=== PATIENT | male | born 1995 | race Caucasian/White ===

== ENCOUNTER 2016-10-03 15:11 | Observation (INO) ==
--- NOTE | 2016-10-03 18:17 | Emergency Department Note ---
Disposition Clinical Impression: Syncope and collapse, Bradycardia Head ache Qualifiers: Headache type: unspecified Headache chronicity pattern: acute headache Intractability: not intractable Qualified Code(s): R51 - Headache Disposition: Admitted As Inpatient Condition: Good Time of Disposition: 20:30 General Adult HPI - General Chief complaint: ED Syncope Stated complaint: syncope Time Seen by Provider: 10/03/16 18:17 Source: patient Mode of arrival: ambulatory Limitations: no limitations Nursing Notes Reviewed: Yes Vital Signs Reviewed: Yes - History of Present Illness HPI Narrative: Patient had a syncopal event yesterday around 9 AM. States that he got short of breath prior to the episode. He then fell to the ground however he did not strike his head. He states when his buttocks at the ground he was able to put his hand out. He did have associated photophobia and headache with the syncope. He also had associated nausea. States that his gait was off for approximately 30 minutes after this. He did eat breakfast prior to this. Pain Scale: 3 - Related Data Allergies Allergy/AdvReac Type Severity Reaction Status Date / Time No Known Allergies Allergy Verified 06/05/16 23:42 All systems ED: reviewed and negative except as stated. Constitutional: Denies: fever, chills ENT ED: Denies: congestion Cardiovascular: Reports: syncope. Denies: chest pain, palpitations, dyspnea on exertion Respiratory: Reports: dyspnea (For 30 minutes prior to syncopal event. None Since.). Denies: cough Gastrointestinal: Reports: nausea (Yesterday when he had the headache and syncopal event. Not today.). Denies: abdominal pain Musculoskeletal: Denies: back pain, neck pain Neurological: Reports: headache (Abnormal yesterday. Associated with eye pain and blurry vision. Patient states a "normal headache today."), abnormal gait ( Yesterday around the time of his syncopal event and for approximately 30 minutes after. None Today). Denies: weakness, numbness, paresthesias Past Medical History - Past Medical History Attestation: Yes The following information was validated with the patient. Source: patient Medical history: Reports: other (Headaches, 3 previous concussions during high school. Absence seizures during high school nonsense.) Psychiatric history: Reports: no psych history - Social History Smoking Status: Never smoker Smokeless Tobacco Status: No Alcohol use: Reports: rarely Drug use: Reports: none Physical Exam - General Limitations: no limitations General appearance: alert, in no apparent distress - Head Head exam: atraumatic, normocephalic, normal inspection - Eye Eye exam: Present: normal appearance, PERRL, EOMI. Absent: scleral icterus, conjunctival injection - ENT ENT exam: normal exam, normal oropharynx, mucous membranes moist - Neck Neck exam: Present: normal inspection, full ROM, trachea midline. Absent: tenderness - Chest Chest inspection: Present: normal inspection, symmetric chest wall rise - Respiratory Respiratory exam: Present: normal lung sounds bilaterally. Absent: respiratory distress, wheezes - Cardiovascular Cardiovascular exam: Present: normal rhythm, bradycardia, normal heart sounds - Abdominal Exam Abdominal exam: Present: soft, Non-Tender. Absent: tenderness, distention, guarding, rebound, rigidity, organomegaly, Pickering's sign, Rovsing's sign, tenderness at McBurney's Point - Extremities Exam Extremities exam: Present: normal inspection, full ROM, normal capillary refill. Absent: tenderness, pedal edema - Back Exam Back exam: Present: normal inspection, full ROM. Absent: tenderness, CVA tenderness (R), CVA tenderness (L) - Neurological Exam Neurological exam: Present: alert, oriented X3, CN II-XII intact, normal gait. Absent: motor sensory deficit - Psychiatric Psychiatric exam: Present: normal affect, normal mood - Skin Skin exam: Present: warm, dry, intact, normal color. Absent: rash, cyanosis, diaphoresis, erythema Course Course Narrative: Well-appearing male patient sitting in bed in no distress. Child is running about the room. The patient is smiling. He states that yesterday while at work around 9 AM he started developing shortness of breath. Approximately 30 minutes after shortness of breath he got an intense headache, blurry vision, and pain behind his eyes. States he also got nauseated. He then had a syncopal event. He states he went down onto his buttocks. States when his hips hit the ground he was able to place his hand behind him. He states he did not strike his head. He states for like 30 minutes after he was able to get off the ground he had an abnormal gait. Patient has a significant history of several concussions while he was in high school from wrestling. He also developed Seizures That He Was Placed on Medication for during His Senior Year. He Has Not Had Any of the Seizures since He Graduated from High School. He States He No Longer Takes Medication for His Headaches. He Frequently Gets Headaches Greater Than 3 Times A Week. He States They Are Not Very Intense. He Grades Them about a 2 Out Of 10. He states he does have a headache at this time however it is like his normal headaches. He states that he has a dull ache to the top of his head. He states only major differences of this headache yesterday was that he had the photophobia and pain behind his eyes. He is mentating appropriately at this time. He is bradycardic while here. I am concerned due to his bradycardia and recent syncope. We have ordered a basic lab workup. His head CT was normal. His chest x-ray was normal. His lab workup was normal. Also added a d-dimer at this time. He denies any shortness of breath at this time. He denies any episodes of feeling like he had Palpitations. He denies any nausea vomiting or diarrhea at this time. He does report nausea associated with his syncope yesterday. Patient is agreeable to admission at this time. - Consultations Consultation #1: Dr Rasmussen accepted Pt in stable condition. Time: 20:25 Vital Signs Temperature 97.4 F L 10/03/16 15:47 Pulse Rate 56 10/03/16 15:47 Respiratory Rate 18 10/03/16 15:47 Blood Pressure 123/75 10/03/16 15:47 O2 Sat by Pulse Oximetry 96 10/03/16 15:47 Temperature 98.0 F 10/04/16 16:12 Pulse Rate 50 10/04/16 16:13 Respiratory Rate 16 10/04/16 16:12 Blood Pressure 122/79 10/04/16 16:13 O2 Sat by Pulse Oximetry 98 10/04/16 16:12 Oxygen Delivery Oxygen Delivery Room Air Medical Decision Making - Medical Records Medical records reviewed: Yes I reviewed the patient's medical records. - Lab Data Lab results reviewed: Yes I reviewed the patient's lab results. Result diagrams: 10/04/16 03:42 10/04/16 03:42 Lab Results 10/03/16 10/03/16 10/03/16 Range/Units 19:24 19:24 19:24 WBC 6.7 (4.3-11.1) K/mcL RBC 5.49 (4.19-5.50) M/mcL Hgb 15.6 (12.9-16.9) g/dL Hct 46.9 (37.5-50.1) % MCV 85.4 (83.0-100.0) fL MCH 28.4 (28.0-33.3) pg MCHC 33.3 (31.6-35.5) g/dL RDW 12.6 (11.5-14.5) % Plt Count 184 (140-400) K/mcL MPV 9.6 (9.4-12.4) fL Immature Gran % 0.4 (0-4) % Seg Neutrophils % 61.6 % Lymphocytes % 25.7 % Monocytes % 7.8 % Eosinophils % 3.9 % Basophils % 0.6 % Neutrophils # 4.1 (1.6-8.9) K/mcL Lymphocytes # 1.7 (0.6-4.6) K/mcL Monocytes # 0.5 (0.0-1.3) K/mcL Eosinophils # 0.3 (0.0-0.6) K/mcL Basophils # 0.0 (0.0-0.2) K/mcL PT 11.7 (9.4-12.1) Seconds INR 1.1 D-Dimer 491 (0-500) ng/mLFEU Sodium 140 (136-145) mEq/L Potassium 4.0 (3.5-4.5) mEq/L Chloride 105 (98-109) mEq/L Carbon Dioxide 29 (19-29) mEq/L BUN 10 (8-26) mg/dL Creatinine 0.85 (0.72-1.25) mg/dL Est GFR ( Amer) > 60 (> 60) Est GFR (Non-Af Amer) > 60 (> 60) BUN/Creatinine Ratio 12 (6-26) Glucose 80 (70-99) mg/dL Calculated Osmolality 288 (280-300) Calcium 9.4 (8.6-10.8) mg/dL - Radiology Data Radiology results reviewed: Yes I reviewed the patient's radiology results. Chest X-Ray 10/03/16 16:37 IMPRESSION: No acute process. D/ / Mil Lopez MD / Mil Lopez MD Interpreting Provider: Mil Lopez MD Head CT 10/03/16 18:40 IMPRESSION: No acute intracranial abnormality. D/ / Ion Schuster MD / Ion Schuster MD Interpreting Provider: Ion Schuster MD - EKG Data EKG #1 EKG attestation: Yes I reviewed and interpreted this EKG. EKG results narrative: Sinus bradycardia with sinus arrhythmia at a rate of 49. GA interval is 137. QRS duration is 92. QT is 412. QTC is 384. No signs of acute ischemia. No previous EKG to compare to. Attestation Statement - Attestation Attestation: I personally interviewed and examined this patient and my medical decision- making was reviewed with the Resident Physician, Dr. Miranda. I agree with the documented findings, disposition and treatment plan as described except to the extent set forth below. Pt is a 21 yo wm, with long hx of headaches who presents to the ER by the urging of his for a syncopal event that occurred yesterday. Pt reports hx of generalized throbbing headaches which he gets 2-3x/wk for the past 5-6 years. PT reports that he began getting headaches after numerous concussions in high school during wrestling. Pt also had seizures following these concussions, and had seen a neurologist while in school. Pt had MRI, CT imaging of brain and EEG monitoring. He was never started on seizure meds, and states he has not had a seizure since high school. Pt continues to have headaches. Pt reports that he was having one of his "typical headaches" yesterday morning at around 0900 and while at work. Pt reports that he was walking and began feeling SOB, and having palpitations, then became very lightheaded, and passed out. Pt reports falling back ont his buttocks, and denies any injury related to the event. Pt isn't sure if he "totally passed out", because he remembers landing on his buttocks, and not striking his head or back. Pt reports feeling very lightheaded for about 30 minutes following the episode. No tongue biting, no incontinence. Pt denies any sudden increase in MIX pain prior to event. MIX's have been improved, 2 /10 in severity since the event. The only change on the morning of this syncope vs near syncope was that he was having photophobia and pain behind his eyes that morning. I agree with pt's PE as documented. Pt with bradycardia in ED on EKG, no ischemic changes. Labs unremark, CT brain wnl. Neuro exam over time unchanged. Added D-dimer with reports of sudden SOB/palp, but neg. Concerned with possible symptomatic bradycardia as the possible etiology, will admit for further eval. VSS and D/W hosp.
[2016-10-03] MEDS ORDERED: 0.9 % Sodium Chloride 1,000 ML IVC ONE (19:12)
[2016-10-03 19:46] LABS: Basophils % 0.6 %; Eosinophils # 0.3 K/mcL (0.0-0.6); Eosinophils % 3.9 %; Hematocrit 46.9 % (37.5-50.1); Hemoglobin 15.6 g/dL (12.9-16.9); Immature Granulocytes % 0.4 % (0-4); Lymphocytes # 1.7 K/mcL (0.6-4.6); Lymphocytes % 25.7 %; Mean Corpuscular HGB Conc 33.3 g/dL (31.6-35.5); Mean Corpuscular Hemoglobin 28.4 pg (28.0-33.3); Mean Corpuscular Volume 85.4 fL (83.0-100.0); Mean Platelet Volume 9.6 fL (9.4-12.4); Monocytes # 0.5 K/mcL (0.0-1.3); Monocytes % 7.8 %; Neutrophils # 4.1 K/mcL (1.6-8.9); Platelet Count 184 K/mcL (140-400); Red Blood Count 5.49 M/mcL (4.19-5.50); Red Cell Distribution Width 12.6 % (11.5-14.5); Segmented Neutrophils % 61.6 %
[2016-10-03 20:01] LABS: BUN/Creatinine Ratio 12 (6-26); Blood Urea Nitrogen 10 mg/dL (8-26); Calcium 9.4 mg/dL (8.6-10.8); Carbon Dioxide 29 mEq/L (19-29); Chloride 105 mEq/L (98-109); Glucose 80 mg/dL (70-99); INR 1.1; Osmolality,Calculated 288 (280-300); Prothrombin Time 11.7 Seconds (9.4-12.1); Sodium 140 mEq/L (136-145); eGFR For African Americans > 60 (> 60); eGFR For Non-African Americans > 60 (> 60)
[2016-10-03] MEDS ORDERED: Ondansetron 4 MG/2 ML VIAL IVP PRN (21:15)
[2016-10-03] MEDS ORDERED: Naloxone 0.4 MG/ML INJ IVP PRN (21:15)
[2016-10-03] MEDS ORDERED: Acetaminophen 325 MG TABLET PO PRN (21:15)
--- NOTE | 2016-10-03 21:26 | Internal Med History&Physical ---
<Cee Ozuna M - Last Filed: 10/03/16 22:10> Date of Encounter: 10/03/16 Time of Encounter: 21:21 Assessment and Plan (1) Syncope and collapse Current visit: Yes Status: Acute Patient reports severe headache and eye pain starting upon waking yesterday, this progressed to included blurred vision, lightheadedness, nausea, and finally syncope with fall. Following the syncope, patient had trouble walking, nausea, headache for 3 hours. Patient has a history of head injuries, absence seizures (now resolved), and frequent headaches. Arrhythmia vs. Migraine vs seizure. Will evaluate for cardiac and neurological causes. EKG showed sinus bradycardia with HR 49. Head cT showed no acute intracranial abnormality. Continuous monitoring and evaluation advisor echocardiogram MRI head and brain consult to neurology (2) Head ache Current visit: Yes Status: Acute Patient reports severe headache yesterday surrounding the syncopal event. He had pain behind his eyes, nausea, and blurry vision. He reports he has mild headaches approximately 2 times per week. He also reports that 6 months ago he had an episode of severe headache and frequent nosebleeds lasting about a week. History of head injuries. He currently has a mild headache. Blood pressure is normal. Tylenol PRN. MRI head and brain consult to neurology. Qualifiers: Headache type: unspecified Headache chronicity pattern: acute headache Intractability: not intractable Qualified Code(s): R51 - Headache (3) Bradycardia Current visit: Yes Status: Acute Patient with HR of 49 on ekg. HR recorded in 50s-60s on recorded vital signs. Symptomatic bradycardia may be possible cause of syncope and headache. 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 Continuous monitoring and evaluation advisor. (4) DVT prophylaxis Current visit: Yes Status: Acute ambulate ad riley Internal Medicine - H&P: HPI Chief complaint: syncope Admitted From: Emergency Dept Plans for Post Hospital Care: Home History of present illness: Mr. Jones is a 21 year old male with history of concussions and absence seizures presented to the emergency department today with complaint of episode of syncope and headache yesterday. Patient reports that when he woke up in the morning proximally 5 AM he had a headache right behind his eyes. Headache continued to worsen admitted morning he started having shortness of breath and blurry vision which lasted about a half hour, he also had some lightheadedness which lasted about an hour prior to fainting and falling to the ground. He reports he fell on his backside and was able to stop himself, he was helped up by a coworker, but then had trouble ambulating. He had nausea prior to and after the event. He continued to have a severe headache and difficulty walking for 3 hours after the event. He denies any confusion. Immediately after the event he was taken to the on-site urgent care at work, where he was told his symptoms are related to allergies. Patient was not satisfied with that diagnosis which is why he presented to the emergency department today. He reports that in high school he suffered 3 concussions, one of which was a major concussion requiring 6 months of follow-up in the concussion clinic. He also reports he had absence seizures for several months after his concussion. He no longer takes seizure medication, and denies any seizures since that time. He reports that approximately 6 months ago he had a severe headache and nosebleeds lasting for approximately 1 week, which then resolved on its own. He reports he typically has approximately 2 headaches per week, he denies any interference in his day-to-day life and does not even take any medication for them. Evaluation in the emergency department included head CT which showed no acute intracranial abnormality. EKG showed sinus bradycardia with heart rate of 49, no signs of acute ischemia. CXR showed no acute process. Labs were normal. On exam, patient alert and oriented, in no acute distress. Heart had regular rate and rhythm lungs are clear bilaterally to auscultation. No neurological deficits. Past Med Surg Social Fam HX - Past Medical History Medical history: other (Headaches, 3 previous concussions during high school. Absence seizures during high school.) Psychiatric history: no psych history - Past Surgical History Surgical History: no surgical history - Social History Smoking Status: Never smoker Smokeless Tobacco Status: No Alcohol use: rarely Drug use: none - Family History Mother Living Status: Still Living Father Living Status: Still Living Grandfather Living Status: Still Living Hx Family Cardiac Disorders: Yes Internal Medicine - H&P: Meds No Known Home Drugs 10/03/16 [History] 3 Allergy/AdvReac Type Severity Reaction Status Date / Time No Known Allergies Allergy Verified 06/05/16 23:42 All Systems PM: A 10-system review of systems was performed and is negative for pertinent findings except as documented above in the HPI. - Constitutional Constitutional: no chills, no fever(s), no night sweats - EENT Eyes: blurry vision, no change in vision, no discharge, no pain, no photophobia Ears: no ear discharge, no ear pain, no tinnitus Nose, mouth and throat: no dysphagia, no nasal discharge, no neck pain, no sore throat - Cardiovascular Cardiovascular ROS IM: dyspnea, lightheadedness, syncope, no chest pain, no diaphoresis, no palpitations - Respiratory Respiratory: no cough, no dyspnea, no wheezing, no excessive phlegm production - Gastrointestinal Gastrointestinal: no abdominal pain, no diarrhea, no hematemesis, no hematochezia, no melena, no nausea, no vomiting - Musculoskeletal Musculoskeletal ROS IM: no numbness, no tingling - Integumentary Integumentary IM: no rash, no unusual bruising - Neurological Neurological ROS: no confusion, no convulsions, no focal weakness, no numbness, no tingling, no tremor(s) - Hematologic/Lymphatic Hematologic/Lymphatic: no easy bruising - Constitutional Vitals: Temp Pulse Resp BP Pulse Ox 98.3 F 55 16 132/88 98 10/03/16 20:51 10/03/16 20:51 10/03/16 20:51 10/03/16 20:51 10/03/16 20:51 General appearance: Present: A&O X 3, pleasant, no acute distress - Head Head exam: Present: atraumatic, normocephalic - Eye Eye exam: Present: PERRL, conjuntiva pink, sclera anicteric Pupils: Present: PERRL - Neck Neck exam general surgery: Present: supple, trachea midline. Absent: lymphadenopathy - Respiratory Respiratory exam: Present: CTAB. Absent: accessory muscle use, rales, rhonchi, wheezes - Cardiovascular Cardiovascular exam: Present: RRR, +S1, +S2. Absent: diastolic murmur, gallop, rubs, systolic murmur - GI/Abdominal GI/Abdominal exam: Present: normal bowel sounds, soft, no peritoneal signs. Absent: distended, tenderness - Extremities Exam Extremities exam: Present: warm, radial pulses palpable and symmetrical. Absent : calf tenderness, cyanotic, pedal edema - Neurological Exam Neurological exam: Present: CN II-XII intact, normal gait, oriented X3, no focal deficits, strengths equal and symetr throughout. Absent: pronater drift, facial droop, speech deficit - Expanded Neurological Exam Cranial Nerves: EOM's intact PM: Normal, gag reflex PM: Normal, nystagmus PM: Normal, tongue deviation PM: Normal Cerebellar function: finger to nose: Normal, heel to jordan: Normal, Romberg: Normal Neuro motor strength exam: LUE: 5, RUE: 5, LLE: 5, RLE: 5 - Skin Skin exam: Present: dry, intact Internal Med - H&P Results - Labs CBC & Chem 7: 10/03/16 19:24 10/03/16 19:24 Labs: All Lab Results (24 Hours) 10/03/16 10/03/16 10/03/16 Range/Units 19:24 19:24 19:24 WBC 6.7 (4.3-11.1) K/mcL RBC 5.49 (4.19-5.50) M/mcL Hgb 15.6 (12.9-16.9) g/dL Hct 46.9 (37.5-50.1) % MCV 85.4 (83.0-100.0) fL MCH 28.4 (28.0-33.3) pg MCHC 33.3 (31.6-35.5) g/dL RDW 12.6 (11.5-14.5) % Plt Count 184 (140-400) K/mcL MPV 9.6 (9.4-12.4) fL Immature Gran % 0.4 (0-4) % Seg Neutrophils % 61.6 % Lymphocytes % 25.7 % Monocytes % 7.8 % Eosinophils % 3.9 % Basophils % 0.6 % Neutrophils # 4.1 (1.6-8.9) K/mcL Lymphocytes # 1.7 (0.6-4.6) K/mcL Monocytes # 0.5 (0.0-1.3) K/mcL Eosinophils # 0.3 (0.0-0.6) K/mcL Basophils # 0.0 (0.0-0.2) K/mcL PT 11.7 (9.4-12.1) Seconds INR 1.1 D-Dimer 491 (0-500) ng/mLFEU Sodium 140 (136-145) mEq/L Potassium 4.0 (3.5-4.5) mEq/L Chloride 105 (98-109) mEq/L Carbon Dioxide 29 (19-29) mEq/L BUN 10 (8-26) mg/dL Creatinine 0.85 (0.72-1.25) mg/dL Est GFR ( Amer) > 60 (> 60) Est GFR (Non-Af Amer) > 60 (> 60) BUN/Creatinine Ratio 12 (6-26) Glucose 80 (70-99) mg/dL Calculated Osmolality 288 (280-300) Calcium 9.4 (8.6-10.8) mg/dL - Diagnostic Studies Chest x-ray Additional comments: Chest X-Ray 10/03/16 16:37 IMPRESSION: No acute process. D/ / Mil Lopez MD / Mil Lopez MD Interpreting Provider: Mil Lopez MD CT scan - head Additional comments: Head CT 10/03/16 18:40 IMPRESSION: No acute intracranial abnormality. D/ / Ion Schuster MD / Ion Schuster MD Interpreting Provider: Ion Schuster MD <Hammad Padilla - Last Filed: 10/04/16 04:34> Date of Encounter: 10/04/16 Internal Medicine - H&P: HPI History of present illness: Mr. Jones is a 21 year old male All Systems PM: A 10-system review of systems was performed and is negative for pertinent findings except as documented above in the HPI. - Constitutional Vitals: Temp Pulse Resp BP Pulse Ox 98.0 F 59 16 134/72 98 10/03/16 23:21 10/03/16 23:21 10/03/16 23:21 10/03/16 23:21 10/03/16 23:21 Internal Med - H&P Results - Labs CBC & Chem 7: 10/04/16 03:42 10/04/16 03:42 Labs: Short CBC 10/04/16 Range/Units 03:42 WBC 5.9 (4.3-11.1) K/mcL Hgb 15.2 (12.9-16.9) g/dL Hct 45.0 (37.5-50.1) % Plt Count 179 (140-400) K/mcL Neutrophils # 3.1 (1.6-8.9) K/mcL BMP 10/04/16 03:42 Sodium 141 Potassium 3.7 Chloride 110 H Carbon Dioxide 26 BUN 9 Creatinine 0.84 Glucose 99 Calcium 9.2 - Attending Attestation I independently obtained history and examined this patient and my medical decision-making was reviewed with the nurse practitioner, Cee Ozuna. I agree with the documented findings, disposition and treatment plan as described. My findings are summarized below: Patient was brought to the hospital for evaluation of headache and syncope. On exam he is awake alert oriented 3. No acute distress. Neurologic exam is nonfocal Heart is regular with normal S1-S2. Plan: Workup for cardiogenic syncope with echocardiogram and heart monitor. Neurogenic syncope workup with MRI and neuro consult. We will add on urine drug screen to rule out recreational drug use as a cause of his symptoms.
[2016-10-03 23:28] LABS: Amphetamine Screen,Urine Negative ng/mL (Cutoff=1000); Barbiturate Screen,Urine Negative ng/mL (Cutoff=200); Benzodiazepines Screen,Urine Negative ng/mL (Cutoff=200); Cannabinoid Screen,Urine Negative ng/mL (Cutoff = 50); Cocaine Screen,Urine Negative ng/mL (Cutoff= 300); Opiate Screen,Urine Negative ng/mL (Cutoff=300); Phencyclidine Screen,Urine Negative ng/mL (Cutoff=25)
[2016-10-04 03:57] LABS: Basophils % 0.7 %; Eosinophils # 0.3 K/mcL (0.0-0.6); Eosinophils % 4.9 %; Hemoglobin 15.2 g/dL (12.9-16.9); Immature Granulocytes % 0.5 % (0-4); Lymphocytes # 1.9 K/mcL (0.6-4.6); Lymphocytes % 32.8 %; Mean Corpuscular HGB Conc 33.8 g/dL (31.6-35.5); Mean Corpuscular Hemoglobin 28.3 pg (28.0-33.3); Mean Corpuscular Volume 83.8 fL (83.0-100.0); Mean Platelet Volume 9.9 fL (9.4-12.4); Monocytes # 0.5 K/mcL (0.0-1.3); Neutrophils # 3.1 K/mcL (1.6-8.9); Platelet Count 179 K/mcL (140-400); Red Blood Count 5.37 M/mcL (4.19-5.50); Red Cell Distribution Width 12.6 % (11.5-14.5); Segmented Neutrophils % 52.1 %
[2016-10-04 04:17] LABS: BUN/Creatinine Ratio 11 (6-26); Blood Urea Nitrogen 9 mg/dL (8-26); Calcium 9.2 mg/dL (8.6-10.8); Carbon Dioxide 26 mEq/L (19-29); Chloride 110 mEq/L (98-109); Glucose 99 mg/dL (70-99); Osmolality,Calculated 291 (280-300); Potassium 3.7 mEq/L (3.5-4.5); Sodium 141 mEq/L (136-145); eGFR For African Americans > 60 (> 60); eGFR For Non-African Americans > 60 (> 60)
--- NOTE | 2016-10-04 12:33 | Discharge Summary ---
Date of Encounter: 10/04/16 Time of Encounter: 11:45 - Discharge Diagnosis (1) Syncope and collapse Priority: Primary Status: Acute Comments: Unclear causation. Chest x-ray negative. Head CT negative. Tox screen negative. Echocardiogram unremarkable with ejection fraction of 60-65%. Brain MRI negative for acute processes. Patient is ambulatory without symptoms during this admission. Orthostatic vital signs unremarkable. Seen and evaluated by neurology who recommended starting him on Topamax at bedtime, rest at home 3 days and follow-up in 3-4 weeks outpatient. (2) Bradycardia Priority: Secondary Status: Chronic Comments: Mild, asymptomatic. Follow up outpatient. (3) Head ache Priority: Secondary Status: Chronic Comments: Patient stated he gets headaches at least a couple times a week but does not take medication for it. He currently complains of a mild headache but states it is consistent with his regular headaches. He denies any vision changes or gait difficulties. Qualifiers: Headache type: unspecified Headache chronicity pattern: acute headache Intractability: not intractable Qualified Code(s): R51 - Headache (4) History of seizures as a child Priority: Secondary Status: Chronic Comments: Patient stated he had several concussions secondary to wrestling and football in high school. He states his last seizure was either when he was a sophomore vish in high school. No anti-seizure medications at home. (5) DVT prophylaxis Priority: Primary Status: Acute Comments: Observation patient. Up ad riley. - Discharge Medications Prescriptions: Topiramate [Topamax] 50 mg PO HS #30 tablet Home Medications: Topiramate [Topamax] 50 mg PO HS #30 tablet 10/04/16 [Rx] Allergies/Adverse Reactions: 3 Allergy/AdvReac Type Severity Reaction Status Date / Time No Known Allergies Allergy Verified 06/05/16 23:42 Procedures/tests Complete & Pending: Procedures Performed prior 72 hours Category Date Time Status MR head/brain wo con [MR] Routine MRI 10/03/16 22:09 Completed EV echocardiogram Routine Y 10/04/16 21:17 Completed Date of admission: 10/03/16 20:33 Primary care physician: PCP NONE Consults: 10/03/16 22:08 Consult to Neurology [CONS] Routine Consulting Provider: [facility] Reason for Consult: Severe headache with syncopal episode. History of multiple concussions and absence seizures (now resolved) Call Completed: No Discharging clinician: Nadine Schwab Anticipated date of discharge: 10/04/16 - Patient Status Disposition: Home, Self-Care Condition: Good Functional capacity at discharge: independent ambulation Overall status at discharge: patient is back to baseline - Discharge Instructions Follow Up With: Sandi Araiza MD [Partnered Physician] - 10/09/16 1:30 pm Garrison Guerin MD [Partnered Physician] - Additional Instructions: Follow-up with primary care provider as scheduled, take 3 days off of work. Follow-up with neurology in 3-4 weeks - Diet and Activity Activity: increase activity as tolerated, return to work once cleared by your PCP/specialist Diet: regular diet Hospital course: Mr. Jones is a 21 year old male with past medical history of multiple concussions due to high school sports and absent seizures back in high school. Patient presented to the emergency department chief complaint of an episode of syncope and a headache on the day prior to presentation. Patient states that when he woke up in the morning, he had a headache behind his eyes which continued to worsen throughout the morning then he started to experience shortness of breath and blurred vision which lasted approximately half an hour. Patient also endorsed lightheadedness which lasted about an hour and occurred prior to him fainting and falling to the ground. Patient reports he fell on his backside was unable to stop himself. He was helped up by a coworker but had difficulty ambulating. Patient also endorsed nausea prior to and after the event. Patient continued to have a severe headache and difficulty walking for 3 hours. He denied any confusion. Immediately after the event, he was taken to his urgent care at his job where he is told his symptoms were related to allergies. He was not satisfied with that diagnosis which prompted his presentation to the emergency department the following day. Patient stating it was high school, he had 3 concussions and had outpatient follow-up with concussion clinic 6 months. After his concussions, patient began to have absence seizures but has not had any seizures since high school and is not on any antiepileptic medications. Patient endorsing acute on chronic headaches happening approximately 2 headaches per week but states these headaches do not interfere with his day-to-day living and he does not take medications for them. Workup in the emergency department revealing sinus bradycardia with no signs of acute ischemia. Chest x-ray negative for acute processes. Head CT negative. Patient was admitted to the hospitalist service for further evaluation and management. Patient remained alert and oriented 3 with no focal neurological weakness is present on examination. Brain MRI negative for acute processes. Echocardiogram unremarkable with ejection fraction of 60-65%. Patient was ambulatory without symptoms during this admission. Orthostatic vital signs unremarkable. Neurology was brought on board who recommended initiating 50 mg of Topamax at bedtime, 3 days rest at home, and follow-up in 3- 4 weeks. He was discharged home in stable condition with close outpatient follow-up recommended. ITS Impressions Chest X-Ray 10/03/16 16:37 IMPRESSION: No acute process. D/ / Mil Lopez MD / Mil Lopez MD Interpreting Provider: Mil Lopez MD Head CT 10/03/16 18:40 IMPRESSION: No acute intracranial abnormality. D/ / Ion Schuster MD / Ion Schuster MD Interpreting Provider: Ion Schuster MD Brain MRI 10/03/16 22:09 IMPRESSION: Unremarkable noncontrast MRI of the brain. The bilateral hippocampal and parahippocampal structures are within normal limits. D/ / Jayson Pedraza MD / Jayson Pedraza MD Interpreting Provider: Jayson Pedraza MD Echocardiogram Date of Study: 10/04/2016 Impressions: Normal LV systolic function, LVEF 60-65%. Normal left ventricular diastolic function. Normal right ventricular size and function. No significant valvular dysfunction. No evidence of pulmonary hypertension. - Time Spent with Patient Total time spent providing and/or coordinating discharge services: - Constitutional Vitals: Temp Pulse Resp BP Pulse Ox 98.1 F 59 17 106/65 98 10/04/16 11:28 10/04/16 11:28 10/04/16 11:28 10/04/16 11:28 10/04/16 11:28 General appearance: Present: A&O X 3, pleasant, no acute distress, answers questions appropriately - Head Head exam: Present: atraumatic, normocephalic - Eye Eye exam: Present: PERRL, conjuntiva pink, sclera anicteric Pupils: Present: PERRL - Neck Neck exam general surgery: Present: supple, trachea midline. Absent: lymphadenopathy - Respiratory Respiratory exam: Present: CTAB. Absent: accessory muscle use, rales, respiratory distress, rhonchi, wheezes - Cardiovascular Cardiovascular exam: Present: RRR, +S1, +S2. Absent: diastolic murmur, gallop, rubs, systolic murmur - GI/Abdominal GI/Abdominal exam: Present: normal bowel sounds, soft, no peritoneal signs. Absent: distended, tenderness - Extremities Exam Extremities exam: Present: warm, radial pulses palpable and symmetrical. Absent : calf tenderness, cyanotic, pedal edema - Neurological Exam Neurological exam: Present: alert, CN II-XII intact, normal gait, oriented X3, no focal deficits, strengths equal and symetr throughout. Absent: pronater drift, facial droop, speech deficit - Skin Skin exam: Present: dry, intact, normal color, warm
--- NOTE | 2016-10-04 14:53 | Electrocardiograph Report ---
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
[2016-10-04 16:14] VITALS: BP 122/79
--- NOTE | 2016-10-04 18:31 | Neurology - Consult Note ---
Date of Encounter: 10/04/16 Time of Encounter: 18:25 Assessment and Plan (1) Syncope and collapse Current Visit: Yes Status: Acute Apparently patient developed a syncopal episode. Unlikely seizure. Could be complicated by dehydration, headache and orthostatic in nature. (2) Head ache Current Visit: Yes Status: Chronic Chronic intermittent headaches of unknown nature. No significant nausea or other autonomic symptoms therefore not sure we are dealing with migraines. could be Stress headaches or tension headache but due to frequent headaches will suggest starting him on Topirmate 50mg qhs. Off work rest at home 3 days. Patient is able to drive Follow up neurology 3 weeks Qualifiers: Headache type: unspecified Headache chronicity pattern: acute headache Intractability: not intractable Qualified Code(s): R51 - Headache History of Present Illness Chief complaint: head and passing out HPI: Mr. Jones is a 21 year old male with PMH signfiicant for chronic headaches, and vertigo who developed an episode of passing out spell associated with not feeling well and headache. He woke up with a frontal headache and was not feeling well that day, he then felt light headaches and passed out. As soon as he hit the floor he regained his consciousness. He has no such similar episodes in the past. He does have chronic headaches occurring few times a week. He has had episodes of vertigo, blurry vision followed by exhaustion in his teenage years and has had extensive work up at [facility]. was told that he was 'awake seizures' but they are not epileptic seizures. After the spell he would sleep 4-5 hours. mother relates. Currently the patient is resting comfortably in bed. He says that he has headaches 2 times a week. They are not associated with nausea and vomiting. MRI of brain showed no abnormality. Past Med Surg Social Fam HX - Past Medical History Medical history: other (Headaches, 3 previous concussions during high school. Absence seizures during high school.) Psychiatric history: no psych history - Past Surgical History Surgical History: no surgical history - Social History Smoking Status: Never smoker Smokeless Tobacco Status: No Alcohol use: rarely Drug use: none - Family History Mother Living Status: Still Living Father Living Status: Still Living Grandfather Living Status: Still Living Hx Family Cardiac Disorders: Yes Medications and Allergies Topiramate [Topamax] 50 mg PO HS #30 tablet 10/04/16 [Rx] 3 Allergy/AdvReac Type Severity Reaction Status Date / Time No Known Allergies Allergy Verified 06/05/16 23:42 All Systems: A 10-system review of systems was performed and is negative for pertinent findings except as documented above in the HPI. 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, hip flexors, tibialis Anterior, quadriceps, toe extension (EHL), plantarflexion Motor examination - left side: 06/16: deltoids, biceps, triceps, wrist flexion, wrist extension, hip flexors, programmable 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, quadriceps, tibialis Anterior, toe extension (EHL), plantarflexion Mental Status Examination: awake, alert, oriented to person, oriented to place, oriented to time, follows commands appropriately, answers questions appropriately, no agnosia, no aphasia, no aproxia Cranial nerve examination: PERRL, EOMI, visual hercules intact, corneal reflexes brisk symmetrically, sensory to face intact, mastication intact, no facial asymmetry is present, no dysarthria, hearing is intact symmetrically, soft palate elevates bilaterally upon phonation, gag reflex intact, flexes SCM and trapezius muscles symmetrically with full power, tongue protrudes midline, no atrophy or facial fasiculations present Cerebellar examination: no dysmetria, performs finger to nose and heel to jordan symmetrically without ataxia, no gait ataxia, no truncal ataxia, no difficulty with rapid alternating movements Results - Laboratory Findings CBC and BMP: 10/04/16 03:42 10/04/16 03:42 Abnormal lab findings: Abnormal lab results Chloride 110 mEq/L (98-109) H 10/04/16 03:42 Consult Discharge Plan - Plan Additional Instructions: Follow-up with primary care provider as scheduled, take 3 days off of work. Follow-up with neurology in 3-4 weeks Referrals: Sandi Araiza MD [Partnered Physician] - 10/09/16 1:30 pm Garrison Guerin MD [Partnered Physician] - Prescriptions: Topiramate [Topamax] 50 mg PO HS #30 tablet
== END 2016-10-04 19:20 | disposition home or self-care (01) ==
LOC: EMEROO 15:11 → 3BNU 15:11
PROVIDERS: ADMIT Internal Medicine Hematology & Oncology; ATTEND Nurse Practitioner Family